=== PATIENT | female | born 1965 | race Caucasian/White ===

== ENCOUNTER 2017-11-17 13:53 | Outpatient (CLI) ==
[2016-04-27 16:10] VITALS: BMI 42.4
== END 2017-11-17 13:54 | disposition home or self-care (01) ==
LOC: FCC-LAB 13:53
PROVIDERS: ATTEND Family Medicine
DX: N39.0 Urinary tract infection, site not specified (principal)
CPT/HCPCS: 87086

== ENCOUNTER 2017-12-07 13:47 | Outpatient (CLI) ==
[2016-04-27 16:10] VITALS: BMI 42.4
== END 2017-12-07 13:48 | disposition home or self-care (01) ==
LOC: FCC-LAB 13:47
PROVIDERS: ATTEND Family Medicine
DX: E11.9 Type 2 diabetes mellitus without complications (principal)
CPT/HCPCS: 36415; 82043; 83036

== ENCOUNTER 2017-12-18 15:35 | Outpatient (CLI) ==
[2016-04-27 16:10] VITALS: BMI 42.4
== END 2017-12-18 15:36 | disposition home or self-care (01) ==
LOC: AMBL 15:35
PROVIDERS: ATTEND Internal Medicine Geriatric Medicine
DX: S09.90XA Unspecified injury of head, initial encounter (principal); S79.911A Unspecified injury of right hip, initial encounter; W11.XXXA Fall on and from ladder, initial encounter

== ENCOUNTER 2018-01-14 18:53 | Outpatient (CLI) ==
[2016-04-27 16:10] VITALS: BMI 42.4
== END 2018-01-14 18:54 | disposition short-term general hospital (02) ==
LOC: AMBL 18:53
PROVIDERS: ATTEND Emergency Medicine
DX: T42.4X1A Poisoning by benzodiazepines, accidental (unintentional), initial encounter (principal); F32.9 Major depressive disorder, single episode, unspecified